=== PATIENT | female | born 1970 | race Caucasian/White ===

== ENCOUNTER 2016-09-24 03:12 | Emergency (ER) | payer BC, OTHER ==
[2016-09-24] MEDS ORDERED: MORPHINE SULFATE 4 MG/ML, 1ML ONE (05:13)
[2016-09-24] MEDS ORDERED: ONDANSETRON 2MG/ML, 2ML ONE (05:14)
[2016-09-24] MEDS ORDERED: HYDROmorphone 1 MG/ML, 1ML ONE (06:12)
[2016-09-24] MEDS ORDERED: MAALOX/HYOSCYAMINE/LIDOCAINE 45 ML BOTTLE ONE (09:45)
[2016-09-26 16:25] LABS: ASPARTATE AMINO TRANSFERASE 20 U/L (15-37); BLOOD UREA NITROGEN 13 mg/dL (7-18)
== END 2016-09-24 10:30 ==
LOC: ED 03:12
DX: K21.9 Gastro-esophageal reflux disease without esophagitis (principal); F17.210 Nicotine dependence, cigarettes, uncomplicated
CPT/HCPCS: 36415; 74176; 80053; 81001; 83690; 85025; 99285